=== PATIENT | male | born 1990 | race Two or more races ===

== ENCOUNTER 2019-08-23 09:26 | Outpatient (CLI) | payer OTHER ==
--- NOTE | 2019-08-23 11:47 | HP ---
HISTORY OF PRESENT ILLNESS: Mr. Jaleel Bennett is a very pleasant 28-year-old gentleman, who presents to the [facility] Center for evaluation of an ulceration of the right anterior lower leg. The patient states that approximately 2 months ago while cleaning 3 ton web feeder, he fell suffering an injury to his right anterior lower leg. The patient states that he may have hit his leg on an acrylic paddle. The patient states that he was seen in Urgent Care and the laceration to his right anterior lower leg was closed with sutures. The patient states that at this time he was placed on a course of p.o. antibiotics and also given an injection of antibiotics. The patient states that the sutures were discontinued approximately 2 weeks later, and at this time, dressing changes with Silvadene cream were initiated. The patient states that he utilized gauze as a secondary dressing. The patient states that he was placed on a second course of p.o. antibiotics. The patient states that he subsequently stopped wrapping his wound with gauze once he noted the presence of eschar. He states that he continued, however, to apply Silvadene cream. He states that when the wound worsened in its appearance, he was seen again by Dr. Brand at [facility] and at this time, referred to the Wound Center for further evaluation and treatment. PAST MEDICAL HISTORY: Negative for any chronic medical conditions. PAST SURGICAL HISTORY: Negative. MEDICATIONS: None. ALLERGIES: NO KNOWN DIAGNOSED ALLERGIES. SOCIAL HISTORY: Social history is significant for tobacco use of up to one pack of cigarettes per day for 8 years. The patient admits to the consumption of 2 drinks per day also for 8 years. FAMILY HISTORY: Family history is significant for diabetes mellitus. The patient's father was diagnosed with diabetes mellitus. Family history is negative for coronary artery disease. PHYSICAL EXAMINATION: VITAL SIGNS: Temperature 98.3, pulse 69, respirations 18, and blood pressure 138/74. GENERAL: A 28-year-old gentleman, sitting on table in examination room, in no acute distress. HEENT: Normocephalic and atraumatic. NECK: No nuchal rigidity. CHEST: Clear to auscultation. CV: Regular rate and rhythm. ABDOMEN: Soft. EXTREMITIES: An ulceration of the right anterior lower leg is present, which measures approximately 2.0 x 1.0 cm. Granulation tissue is present within the wound margins. Necrotic and nonviable tissue present within the wound margins was debrided with an excisional full-thickness debridement with the use of curette. Desiccated tissue and undermining at the periphery of the wound were eliminated with the use of scissors. No purulent drainage is associated with the wound. No cellulitis of the right anterior lower leg is appreciated. No maceration of the skin of the periwound is noted. A pedal pulse is palpable on the right. No significant edema of the right foot or lower leg is appreciated on exam today. NEUROLOGIC: Grossly nonfocal. ASSESSMENT AND PLAN: Ulceration of right anterior lower leg as described above. Dressing changes of Medihoney, 4x4s, ABDs, Kerlix, and an Kal bandage will be initiated today. These dressing changes are to be performed on a daily basis after cleansing and irrigation. No antibiotics will be prescribed today based upon the appearance of the wound. I will see Mr. Bennett again in 1 week. The patient understands and is in agreement with the preceding treatment plan. Job ID: [id number]
[2019-08-23] MEDS ORDERED: Sodium Chloride 0.9% 15 ML NEB ONE (18:00)
[2019-08-23] MEDS ORDERED: Lidocaine 2% PF 100 mg/5 ml Syringe ONE (18:00)
== END 2019-08-23 09:27 | disposition home or self-care (01) ==
LOC: WCC 09:26
PROVIDERS: ATTEND Family Medicine
DX: L97.919 Non-pressure chronic ulcer of unspecified part of right lower leg with unspecified severity (principal)
CPT/HCPCS: 11042; 99203; A4218; G0463; J2001

== ENCOUNTER 2019-08-30 15:04 | Outpatient (CLI) | payer OTHER ==
--- NOTE | 2019-08-30 10:56 | PRG ---
DATE OF SERVICE: 08/30/2019 HISTORY: Mr. Jaleel Bennett is a very pleasant 28-year-old gentleman who presents to the Wound Center for evaluation of an ulceration of the right anterior lower leg. The patient previously stated that approximately 2 months ago while cleaning a 3 ton saw feeder, he fell, suffering an injury to his right anterior lower leg. The patient stated that he may have hit his leg on an acrylic paddle. The patient stated that he was seen in Urgent Care and the laceration to his right anterior lower leg was closed with sutures. The patient stated that at this time he was placed on a course of p.o. antibiotics and also given an injection of antibiotics. The patient stated that the sutures were discontinued approximately 2 weeks later and at this time, dressing changes with Silvadene cream were initiated. The patient stated that he utilizes gauze as a secondary dressing. The patient stated that he was placed on a second course of p.o. antibiotics. The patient stated that he subsequently stopped wrapping his wound with gauze once he noted the presence of an eschar. He stated that he continued, however, to apply Silvadene cream. He stated that when the wound worsened in its appearance, he was seen again by Dr. Brand at [facility] and at this time, referred to the Wound Center for further evaluation and treatment. After being seen in the Wound Center, the patient was placed on dressing changes of Medihoney followed by 4x4s, ABDs, Kerlix, and an Kal bandage. The patient states that he has been performing these dressing changes on a daily basis as prescribed. PHYSICAL EXAMINATION: VITAL SIGNS: Temperature 98.0, pulse 74, respirations 21, and blood pressure 137/90. EXTREMITIES: An ulceration of the right anterior lower leg is present, which measures approximately 2.2 x 0.9 cm. Granulation tissue is present within the wound margins. Necrotic and nonviable tissue present within the wound margins was debrided with an excisional full-thickness debridement with the use of a curette. No purulent drainage is associated with the wound. No cellulitis of the right anterior lower leg is appreciated. No maceration of the skin of the periwound is noted. A dorsalis pedis pulse is palpable on the right. No significant edema of the right foot or lower leg is present on exam today. ASSESSMENT AND PLAN: Ulceration of right anterior lower leg as described above. Dressing changes of Medihoney, 4x4s, ABDs, Kerlix, and an Kal bandage will be continued on a daily basis after cleansing and irrigation. I will see Mr. Bennett again in 1 week. Arrangements were previously made for the home delivery of dressing supplies. Job ID: [id number]
[2019-08-30] MEDS ORDERED: Lidocaine 2% PF 100 mg/5 ml Syringe ONE (16:35)
[2019-08-30] MEDS ORDERED: Sodium Chloride 0.9% 15 ML NEB ONE (16:35)
== END 2019-08-30 15:05 | disposition home or self-care (01) ==
LOC: WCC 15:04
PROVIDERS: ATTEND Family Medicine
DX: L97.919 Non-pressure chronic ulcer of unspecified part of right lower leg with unspecified severity (principal)
CPT/HCPCS: 11042; A4218; J2001

== ENCOUNTER 2019-09-06 09:37 | Outpatient (CLI) | payer OTHER ==
[~2019-09-06 09:37] MED LIST: Lidocaine 2% PF 100 mg/5 ml Syringe ONE; Sodium Chloride 0.9% 15 ML NEB ONE
--- NOTE | 2019-09-06 10:43 | PRG ---
DATE OF SERVICE: 09/06/2019 HISTORY: Mr. Jaleel Bennett is a very pleasant 28-year-old gentleman, who presents to the Wound Center for evaluation of an ulceration of the right anterior lower leg. Previously, the patient stated that approximately 2 months prior to the patient's initial presentation to the Wound Center while cleaning a 3-ton ruling machine feeder, he fell, suffering an injury to his right anterior lower leg. The patient stated that he may have hit his leg on an acrylic paddle. The patient stated that he was seen in Urgent Care and the laceration to his right anterior lower leg was closed with sutures. The patient stated that at this time he was placed on a course of p.o. antibiotics and also given an injection of antibiotics. The patient stated that the sutures were discontinued approximately 2 weeks later and at this time, dressing changes with Silvadene cream were initiated. The patient stated that he utilized gauze as a secondary dressing. The patient stated that he was placed on a second course of p.o. antibiotics. He stated that he subsequently stopped wrapping his wound with gauze once he noted the presence of an eschar. He stated that he continued, however, to apply Silvadene cream. He stated that when the wound worsened in its appearance, he was seen again by Dr. Brand at [facility] and at this time, referred to the Wound Center for further evaluation and treatment. After being seen in the Wound Center, the patient was placed on dressing changes of Medihoney followed by 4x4s, ABDs, Kerlix, and an Kal bandage. Again, the patient states that he has been performing these dressing changes on a daily basis as prescribed. PHYSICAL EXAMINATION: VITAL SIGNS: Temperature 98.1, pulse 86, respirations 18, and blood pressure 144/94. EXTREMITIES: An ulceration of the right anterior lower leg is present which measures approximately 2.1 x 0.7 cm. The dimensions of the wound at the time of the patient's last visit were approximately 2.2 x 0.9 cm. Granulation tissue is present within the wound margins. Necrotic and nonviable tissue present within the wound margins were debrided with an excisional full-thickness debridement with the use of a curette. No purulent drainage is associated with the wound. No cellulitis of the right anterior lower leg is appreciated. No maceration of the skin of the periwound is noted. No significant edema of the right foot or lower leg is present on exam today. ASSESSMENT AND PLAN: Ulceration of right anterior lower leg as described above. Dressing changes of Medihoney, 4x4s, Kerlix, and an Kal bandage are to be performed on a daily basis after cleansing and irrigation. I will see Mr. Bennett again in 1 week. Job ID: [id number]
== END 2019-09-06 09:38 | disposition home or self-care (01) ==
LOC: WCC 09:37
PROVIDERS: ATTEND Family Medicine
DX: L97.919 Non-pressure chronic ulcer of unspecified part of right lower leg with unspecified severity (principal)
CPT/HCPCS: A4218; J2001

== ENCOUNTER 2019-09-13 10:14 | Outpatient (CLI) | payer OTHER ==
--- NOTE | 2019-09-13 11:56 | PRG ---
DATE OF SERVICE: 09/13/2019 HISTORY: Mr. Jaleel Bennett is a very pleasant 28-year-old gentleman, who presents to the wound center for evaluation of an ulceration of the right anterior lower leg. The patient previously stated that approximately 2 months prior to his initial presentation to the wound center, while cleaning a 3-ton stock feeder, he fell, suffering an injury to his right anterior lower leg. The patient stated that he may have hit his leg upon an acrylic paddle. The patient stated that he was seen in urgent care and the laceration to his right anterior lower leg was closed with sutures. The patient stated that at this time he was placed on a course of p.o. antibiotics and also given an injection of antibiotics. The patient stated that the sutures were discontinued approximately 2 weeks later and at this time dressing changes with Silvadene cream were initiated. The patient stated that he utilized gauze as a secondary dressing. He stated that he was placed on a second course of p.o. antibiotics. He stated that he subsequently stopped wrapping his wound with gauze once he noted the presence of an eschar. He stated that he continued, however, to apply Silvadene cream. He stated that when the wound worsened in its appearance, he was seen again by Dr. Brand at [facility], and at this time, referred to the wound center for further evaluation and treatment. After being seen in the wound center, the patient was placed on dressing changes of Medihoney followed by 4x4s, ABDs, Kerlix, and an Kal bandage. Again, the patient states that he has been performing dressing changes of Medihoney on a daily basis as prescribed. PHYSICAL EXAMINATION: VITAL SIGNS: Temperature 97.9, pulse 81, respirations 20, blood pressure 140/82. EXTREMITIES: An ulceration of the right anterior lower leg is present, which measures approximately 1.6 x 0.6 cm. The dimensions of the wound at the time of the patient's last visit were approximately 2.1 x 0.7 cm. Granulation tissue is present within the wound margins. Necrotic and nonviable tissue present within the wound margins was debrided with an excisional full-thickness debridement with the use of a curette. No purulent drainage is associated with the wound. No cellulitis of the right anterior lower leg is appreciated. No maceration of the skin of the periwound is noted. A dorsalis pedis pulse is palpable on the right. No significant edema of the right foot or lower leg is present on exam today. ASSESSMENT AND PLAN: Ulceration of right anterior lower leg as described above. Dressing changes of Medihoney, 4x4s, Kerlix, and an Kal bandage are to be performed on a daily basis after cleansing and irrigation. I will see Mr. Bennett again in 1 week. Job ID: [id number]
[2019-09-13] MEDS ORDERED: Sodium Chloride 0.9% 15 ML NEB ONE (16:26)
[2019-09-13] MEDS ORDERED: Lidocaine 2% PF 100 mg/5 ml Syringe ONE (16:26)
== END 2019-09-13 10:15 | disposition home or self-care (01) ==
LOC: WCC 10:14
PROVIDERS: ATTEND Family Medicine
DX: L97.919 Non-pressure chronic ulcer of unspecified part of right lower leg with unspecified severity (principal)
CPT/HCPCS: 11042; A4218; J2001

== ENCOUNTER 2019-09-20 13:20 | Outpatient (CLI) | payer OTHER ==
--- NOTE | 2019-09-20 11:12 | PRG ---
DATE OF SERVICE: 09/20/2019 HISTORY: Mr. Jaleel Bennett is a very pleasant 28-year-old gentleman who presents to the Wound Center for evaluation of an ulceration of the right anterior lower leg. The patient previously stated that approximately 2 months prior to his initial presentation to the Wound Center while cleaning a 3-ton drier feeder, he fell, suffering an injury to his right anterior lower leg. The patient stated that he may have hit his leg upon an acrylic paddle. The patient stated that he was seen in Urgent Care, and the laceration to his right anterior lower leg was closed with sutures. The patient stated that at this time he was placed on a course of p.o. antibiotics and also given an injection of antibiotics. The patient stated that the sutures were discontinued approximately 2 weeks later, and at this time, dressing changes with Silvadene cream were initiated. The patient stated that he utilized gauze as a secondary dressing. He stated that he was placed on a second course of p.o. antibiotics, but he stated that he subsequently stopped wrapping his wound with gauze once he noted the presence of an eschar. He stated that he continued, however, to apply Silvadene cream. He stated that when the wound worsened in its appearance, he was seen again by Dr. Brand at [facility], and at this time, referred to the Wound Center for further evaluation and treatment. After being seen in the Wound Center, the patient was placed on dressing changes of Medihoney followed by 4x4s, ABDs, Kerlix, and an Kal bandage. Again, the patient states that he has been performing dressing changes of Medihoney on a daily basis as prescribed. PHYSICAL EXAMINATION: VITAL SIGNS: Temperature 98.0, pulse 80, respirations 17, and blood pressure 130/82. EXTREMITIES: An ulceration of the right anterior lower leg is present, which measures approximately 1.9 x 0.7 cm. The dimensions of the wound at the time of the patient's last visit were approximately 1.6 x 0.6 cm. Granulation tissue is present within the wound margins. Necrotic and nonviable tissue present within the wound margins was debrided with an excisional full-thickness debridement with the use of a curette. No purulent drainage was associated with the wound. No cellulitis of the right anterior lower leg is appreciated. No maceration of the skin of the periwound is noted. No significant edema of the right foot or lower leg is present on exam today. Postdebridement measurements are approximately 1.8 x 0.4 cm. ASSESSMENT AND PLAN: Ulceration of right anterior lower leg as described above. Dressing changes of Medihoney, 4x4s, Kerlix, and an Kal bandage will be continued on a daily basis after cleansing and irrigation. The patient has been reassured that the wound has almost healed completely, and Mr. Bennett will be discharged from clinic today with followup on a p.r.n. basis. The patient understands and is in agreement with the preceding treatment plan. The patient has been instructed to continue the preceding dressing changes until his wound has completely healed. Job ID: [id number]
== END 2019-09-20 13:21 | disposition home or self-care (01) ==
LOC: WCC 13:20
PROVIDERS: ATTEND Family Medicine
DX: L97.919 Non-pressure chronic ulcer of unspecified part of right lower leg with unspecified severity (principal)
CPT/HCPCS: A4218; J2001